=== PATIENT | male | born 1945 | race Caucasian/White ===

== ENCOUNTER 2016-05-31 18:32 | Emergency (ER) | payer OTHER ==
[~2016-05-31] VITALS: Ht 177.8 cm; Wt 126.0 kg
[~2016-05-31 18:32] MED LIST: CORE25TA PO; HYDR-2768 PO; LISI-366 PO; LOVA40TA PO; NORV10TA PO; ST JTAB PO; TAB-TAB PO
[2016-05-31 18:35] VITALS: BP 184/92; PULSE 84; RESP 18; TEMP 97.9; O2SAT 93
[2016-05-31] MEDS ORDERED: AMLO10TA2 PO (18:50)
[2016-05-31] MEDS ORDERED: MOME17I EACH NARE (18:50)
[2016-05-31] MEDS ORDERED: DICL1CAP4 PO (18:50)
[2016-05-31] MEDS ORDERED: DICL25 PO (18:50)
[2016-05-31] MEDS ORDERED: SIMV40TA PO (18:50)
[2016-05-31] MEDS ORDERED: CARV25TA PO (18:50)
[2016-05-31] MEDS ORDERED: OMEP20TA PO (18:50)
[2016-05-31] MEDS ORDERED: HYDR25TA5 PO (18:50)
[2016-05-31] MEDS ORDERED: LISI40TA PO (18:50)
--- NOTE | 2016-05-31 19:23 | PD ---
HPI Chief Complaint: Neuro Symptoms/ Deficits Time Seen by Provider: 19:05 Travel History International Travel<30 days: No Contact w/Intl Traveler<30days: No Traveled to known affect area: No History of Present Illness HPI The patient is a 71-year-old female that at approximately 6 PM tonight was riding in a car when he felt severe vertigo and nausea without vomiting. The patient has just been getting over a "cold". Also, both ear canals are stopped up and, despite using softening medicine for a week he has been referred to ENT on 14 June to clean out his ears. He denies any ear pain or fever. He denies any focal weakness. He denies any headache. The patient sees a group tester and has a history of renal insufficiency. He has had one kidney removed. He has a mass on the other kidney. The group tester recently stated that his levels were "stable". PFSH Past Medical History Cancer: Yes (SUSPECTED L RENAL CARCINOMA) Cardiovascular Problems: No Diabetes: No Endocrine: No Gastrointestinal Disorders: No Genitourinary: No Hepatitis: No Hiatal Hernia: No Hypertension: Yes Immune Disorder: No Medical other: No Musculoskeletal: Yes (ARTHRITIS IN KNEE--L KNEE REPLACEMENT) Neurologic: Yes (TIA 2009) Psychiatric: No Reproductive: No Respiratory: Yes (SLEEP APNEA, 2 LITERS OXYGEN AT NIGHT) Thyroid Disease: No Influenza Vaccination: Yes Past Surgical History Abdominal Surgery: No AICD: No Cardiac Surgery: No Ear Surgery: No Eye Surgery: No Genitourinary Surgery: Yes (LEFT KIDNEY REMOVED) Gynecologic Surgery: No Joint Replacement: Yes (L KNEE) Oral Surgery: No Pacemaker: No Thoracic Surgery: No Other Surgery: Yes Social History Alcohol Use: No Tobacco Use: No Substance Use: No Allergies-Medications (Allergen,Severity, Reaction): Coded Allergies: No Known Allergies (Unverified , 05/31/16) Reported Meds & Prescriptions Reported Meds & Active Scripts Active Reported Nasonex Nasal [place] (Mometasone Furoate) 50 Mcg/Act Naspr 2 [place] EACH NARE DAILY Diclofenac Sodium DR (Diclofenac Sodium) 25 Mg Tabdr 25 Mg PO BID Zorvolex (Diclofenac) 35 Mg Cap 25 Mg PO TID Omeprazole 20 Mg Tab 20 Mg PO DAILY Simvastatin 40 Mg Tab 40 Mg PO HS Amlodipine (Amlodipine Besylate) 10 Mg Tab 10 Mg PO DAILY Hydrochlorothiazide 25 Mg Tab 25 Mg PO DAILY Lisinopril 40 Mg Tab 80 Mg PO DAILY Carvedilol 25 Mg Tab 50 Mg PO BID Review of Systems Except as stated in HPI: all other systems reviewed are Neg Physical Exam Narrative GENERAL: The patient is alert, oriented 3 in moderate apparent distress with his vertigo. He holds his head completely still. His vital signs show blood pressure 184/92 and otherwise normal. SKIN: Warm and dry. HEAD: Atraumatic. Normocephalic. EYES: Pupils equal and round. No scleral icterus. No injection or drainage. ENT: No nasal bleeding or discharge. Mucous membranes pink and moist. There is horizontal nystagmus when the patient looks to one side or the other. Neither tympanic membrane can be seen due to hard, inspissated wax in the canals. This is unlikely to respond to irrigation. NECK: Trachea midline. No JVD. No carotid bruits are heard. CARDIOVASCULAR: Regular rate and rhythm. No murmur appreciated. RESPIRATORY: No accessory muscle use. Clear to auscultation. Breath sounds equal bilaterally. GASTROINTESTINAL: Abdomen soft, non-tender, nondistended. Hepatic and splenic margins not palpable. MUSCULOSKELETAL: No obvious deformities. No clubbing. No cyanosis. No edema. NEUROLOGICAL: Awake and alert. No obvious cranial nerve deficits. Motor grossly within normal limits. Normal speech. PSYCHIATRIC: Appropriate mood and affect; insight and judgment normal. Data Data Last Documented VS Vital Signs Date Time Temp Pulse Resp B/P Pulse Ox O2 Delivery O2 Flow Rate FiO2 05/31/16 20:41 87 18 161/87 96 Room Air 05/31/16 18:35 97.9 Orders Electrocardiogram (05/31/16 19:15) Complete Blood Count With Diff (05/31/16 19:15) Comprehensive Metabolic Panel (05/31/16 19:15) Troponin I (05/31/16 19:15) Urinalysis - C+S If Indicated (05/31/16 19:15) Magnesium (Mg) (05/31/16 19:15) Ct Brain W/O Iv Contrast(Rout) (05/31/16 19:15) Ondansetron Inj (Zofran Inj) (05/31/16 19:30) Sodium Chlor 0.9% 1000 Ml Inj (Ns 1000 M (05/31/16 19:30) Meclizine (Antivert) (05/31/16 19:45) Labs Laboratory Tests Test 05/31/16 05/31/16 19:20 20:50 White Blood Count 9.0 TH/MM3 Red Blood Count 4.89 MIL/MM3 Hemoglobin 14.0 GM/DL Hematocrit 42.4 % Mean Corpuscular Volume 86.8 FL Mean Corpuscular Hemoglobin 28.6 PG Mean Corpuscular Hemoglobin 32.9 % Concent Red Cell Distribution Width 12.9 % Platelet Count 254 TH/MM3 Mean Platelet Volume 8.2 FL Neutrophils (%) (Auto) 61.9 % Lymphocytes (%) (Auto) 21.4 % Monocytes (%) (Auto) 6.2 % Eosinophils (%) (Auto) 8.4 % Basophils (%) (Auto) 2.1 % Neutrophils # (Auto) 5.5 TH/MM3 Lymphocytes # (Auto) 1.9 TH/MM3 Monocytes # (Auto) 0.6 TH/MM3 Eosinophils # (Auto) 0.8 TH/MM3 Basophils # (Auto) 0.2 TH/MM3 CBC Comment DIFF FINAL Differential Comment Sodium Level 139 MEQ/L Potassium Level 4.2 MEQ/L Chloride Level 105 MEQ/L Carbon Dioxide Level 24.5 MEQ/L Anion Gap 10 MEQ/L Blood Urea Nitrogen 41 MG/DL Creatinine 2.30 MG/DL Estimat Glomerular Filtration 28 ML/MIN Rate Random Glucose 135 MG/DL Calcium Level 8.6 MG/DL Magnesium Level 2.4 MG/DL Total Bilirubin 0.3 MG/DL Aspartate Amino Transf 17 U/L (AST/SGOT) Alanine Aminotransferase 28 U/L (ALT/SGPT) Alkaline Phosphatase 85 U/L Troponin I LESS THAN 0.02 NG/ML Total Protein 7.9 GM/DL Albumin 3.8 GM/DL Urine Color YELLOW Urine Turbidity CLEAR Urine pH 5.5 Urine Specific [place] 1.016 Urine Protein TRACE mg/dL Urine Glucose (UA) NEG mg/dL Urine Ketones NEG mg/dL Urine Occult Blood TRACE Urine Nitrite NEG Urine Bilirubin NEG Urine Leukocyte Esterase NEG Urine RBC 0-3 /hpf Urine WBC 0-2 /hpf Urine Squamous Epithelial 0-5 /hpf Cells Urine Bacteria NONE /hpf Microscopic Urinalysis Comment CULT NOT INDICATED MDM Medical Decision Making Medical Screen Exam Complete: Yes Emergency Medical Condition: Yes Medical Record Reviewed: Yes Interpretation(s) The CT brain shows extensive vascular calcifications, microvascular ischemic demyelinization in deep white matter which is chronic but no acute abnormality. The urine shows trace blood but is otherwise normal and culture is not indicated. The CBC is normal. The complete metabolic profile shows a BUN of 41 , creatinine of 2.3, GFR of 28, glucose 135 but is otherwise unremarkable. The troponin I is normal. The magnesium is normal. Differential Diagnosis Viral labyrinthitis, benign positional vertigo, ischemic CVAunlikely, electrolyte disorder, renal insufficiency, acute coronary syndromeunlikely Narrative Course The patient likely has labyrinthitis. This may be related to the recent virus that he had. It is difficult to tell whether his bilateral cerumen impaction has anything to do with this. It is now 927 p.m. and the patient's vertigo has subsided and his nausea has resolved. He can now open his eyes and moving his head without a problem. Diagnosis Primary Impression: Viral labyrinthitis Additional Impressions: Chronic renal insufficiency Bilateral impacted cerumen Additional Instructions: Put Debrox in both ears as instructed by the label. Do not miss your ENT appointment. Med/Other Pt SpecificInfo: Prescription(s) given Scripts Promethazine (Phenergan)25 Mg Tab25 Mg PO Q6H PRN (Nausea/Vomiting) #40 TAB Ref 0 Prov:Shakir De La Vega MD 05/31/16 Meclizine 25 Mg Tab25 Mg PO TID PRN (VERTIGO) #45 TAB Ref 0 Prov:Shakir De La Vega MD 05/31/16 Disposition: 01 DISCHARGE HOME Condition: Stable Shakir De La Vega MD May 31, 2016 19:23
[2016-05-31 19:26] LABS: AUTOMATED NEUTROPHIL # 5.5 TH/MM3 (1.8-7.7); BASOPHIL # 0.2 TH/MM3 (0-0.2); BASOPHIL % 2.1 % (0.0-2.0); EOSINOPHIL # 0.8 TH/MM3 (0-0.4); EOSINOPHIL % 8.4 % (0.0-4.0); HEMATOCRIT 42.4 % (39.0-51.0); HEMO FLAGS DIFF FINAL; LYMPH % 21.4 % (9.0-44.0); LYMPHOCYTE # 1.9 TH/MM3 (1.0-4.8); MEAN CELL VOLUME 86.8 FL (80.0-100.0); MEAN CORPUSCULAR HEMOGLOBIN 28.6 PG (27.0-34.0); MEAN CORPUSCULAR HGB CONC 32.9 % (32.0-36.0); MONO % 6.2 % (0.0-8.0); NEUT % 61.9 % (16.0-70.0); PLATELET COUNT 254 TH/MM3 (150-450); RED BLOOD COUNT 4.89 MIL/MM3 (4.50-5.90); RED CELL DISTRIBUTION WIDTH 12.9 % (11.6-17.2)
[2016-05-31] MEDS ORDERED: SODIUM CHLOR 0.9% 1000 ML INJ 1,000 ML IV SCH (19:30)
[2016-05-31] MEDS ORDERED: ONDANSETRON HCL 4 MG/2 ML VIAL IV ONE (19:30)
[2016-05-31 19:36] VITALS: BP 169/94; PULSE 81; RESP 18; O2SAT 96
[2016-05-31 19:37] LABS: CHLORIDE 105 MEQ/L (98-107); POTASSIUM 4.2 MEQ/L (3.5-5.1); SODIUM (NA) 139 MEQ/L (136-145)
[2016-05-31 19:41] LABS: ANION GAP 10 MEQ/L (5-15); BICARBONATE 24.5 MEQ/L (21.0-32.0); BLOOD UREA NITROGEN 41 MG/DL (7-18); MAGNESIUM 2.4 MG/DL (1.5-2.5)
[2016-05-31 19:44] LABS: ALT (GPT) 28 U/L (12-78); AST (GOT) 17 U/L (15-37); GLOMERULAR FILTRATION RATE 28 ML/MIN (>89)
[2016-05-31 19:45] LABS: TOTAL BILIRUBIN ADULT 0.3 MG/DL (0.2-1.0)
[2016-05-31] MEDS ORDERED: MECLIZINE HCL 25 MG TAB PO ONE ×2 (19:45→21:45)
[2016-05-31 19:47] LABS: ALKALINE PHOSPHATASE 85 U/L (45-117)
[2016-05-31 20:41] VITALS: BP 161/87; PULSE 87; RESP 18; O2SAT 96
[2016-05-31 20:56] LABS: BLOOD, URINE TRACE (NEG); GLUCOSE,URINE NEG (NEG); KETONE, URINE NEG (NEG); NITRITE,URINE NEG (NEG); PH, URINE 5.5 (5.0-8.5)
[2016-05-31 20:57] LABS: URINE COLOR YELLOW (YELLW/STRAW)
[2016-05-31 21:00] LABS: RBC, URINE 0-3 /hpf (0-3); SQUAMOUS EPITHELIAL CELL URINE 0-5 /hpf (0-5); WBC, URINE 0-2 /hpf (0-5)
[2016-05-31 21:01] LABS: COMMENT (UR) CULT NOT INDICATED; CULTURE IF INDICATED CULT NOT INDICATED
--- NOTE | 2016-05-31 21:03 | RADHPO ---
EXAM DATE/TIME: 05/31/2016 20:43 [facility] COMPARISON: No previous studies available for comparison. INDICATIONS : Dizziness. RADIATION DOSE: 62.07 CTDIvol (mGy) MEDICAL HISTORY : Carcinoma, not otherwise specified. Hypertension. Cerebrovascular disease. SURGICAL HISTORY : Nephrectomy, left. ENCOUNTER: Initial ACUITY: 1 day PAIN SCALE: 0/10 LOCATION: cranial TECHNIQUE: Multiple contiguous axial images were obtained of the head. Using automated exposure control and adj ustment of the mA and/or kV according to patient size, radiation dose was kept as low as reasonably a chievable to obtain optimal diagnostic quality images. FINDINGS: CEREBRUM: The ventricles are normal for age. No evidence of midline shift, mass lesion, hemorrhage or acute in farction. No extra-axial fluid collections are seen. Moderate microvascular ischemic demyelinization of the deep white matter POSTERIOR FOSSA: The cerebellum and brainstem are intact. The 4th ventricle is midline. The cerebellopontine angle i s unremarkable. EXTRACRANIAL: The visualized portion of the orbits is intact. Vascular calcifications in the internal carotid arter ies in the siphon and vertebral arteries at the foramen SKULL: The calvaria is intact. No evidence of skull fracture. CONCLUSION: Extensive vascular calcifications. Microvascular ischemic demyelinization in deep white matter chroni c. No acute abnormality. Rashard Donohue MD on May 31, 2016 at 21:00 Board Certified Radiologist. This report was verified electronically.
[2016-05-31] MEDS ORDERED: MECL-62 PO (21:29)
[2016-05-31] MEDS ORDERED: PROM25TA5 PO (21:29)
[2016-05-31] MEDS ORDERED: PROMETHAZINE HCL 25 MG TAB PO ONE (21:45)
[2016-05-31 21:51] VITALS: BP 162/88; PULSE 84; RESP 18; O2SAT 96
--- NOTE | 2016-06-01 16:33 | EKG ---
Date Performed: 05/31/2016 Time Performed: 18:39:34 PTAGE: 71 years EKG: Normal Sinus rhythm Inferior infarct - age undetermined Abnormal R-wave progression, concerning for a lateral myocardial infarct Baseline artifact Abnormal ECG PREVIOUS TRACING : 06/16/2013 10.23 Compared to previous tracing, there has been a change in th e lateral R-wave progression, potentially consistent with the lateral myocardial infarction-age indet erminant. DOCTOR: Mary Lou Quiroz Interpretating Date/Time 06/01/2016 16:31:44
== END 2016-05-31 21:54 | disposition home or self-care (01) ==
LOC: PHED 18:32
DX: H83.09 Labyrinthitis, unspecified ear (principal); B34.9 Viral infection, unspecified; H61.23 Impacted cerumen, bilateral; N18.9 Chronic kidney disease, unspecified; R94.31 Abnormal electrocardiogram [ECG] [EKG]
CPT/HCPCS: 70450; 80053; 81001; 83735; 84484; 85025; 93005; 96361; 96374; 99284; J2405; J7030; Q0169

== ENCOUNTER 2016-12-18 08:30 | Inpatient (IN) | payer OTHER, MEDICARE ==
[~2016-12-18] VITALS: Ht 182.9 cm; Wt 136.5 kg
[~2016-12-18 08:30] MED LIST changes: +AMLO10TA2 PO; +CARV25TA PO; -CORE25TA PO; +DICL1CAP4 PO; +DICL25 PO; -HYDR-2768 PO; +HYDR25TA5 PO; -LISI-366 PO; +LISI40TA PO; -LOVA40TA PO; +MECL-62 PO; +MOME17I EACH NARE; -NORV10TA PO; +OMEP20TA PO; +PROM25TA5 PO; +SIMV40TA PO; -ST JTAB PO; -TAB-TAB PO
[2016-12-24] VITALS (9 sets, daily range): BP systolic 124–151; BP diastolic 70–75; PULSE 71–100; RESP 16–20; TEMP 97.5–99.4; O2SAT 92–97
[2016-12-24] MEDS ORDERED: INSULIN HUMAN REGULAR 1,000 UNITS/10 ML VIAL SQ PRN (06:15)
[2016-12-24] MEDS ORDERED: CHLORHEXIDINE GLUCONATE 2 % 1 PACK (2 CLOTHS) TOPICAL PRN (06:15)
[2016-12-24] MEDS ORDERED: LACTATED RINGER'S 1000 ML IV PRN (06:15)
[2016-12-24] MEDS ORDERED: POVIDONE IODINE 5% (ANTISEPSIS KIT) 4 APPLICATIONS EACH NARE PRN (06:15)
[2016-12-24] MEDS ORDERED: SODIUM CHLORID 0.9% 500 ML IV PRN (06:15)
[2016-12-24] MEDS ORDERED: METOPROLOL TARTRATE 25 MG TAB PO PRN (06:15)
[2016-12-24] MEDS ORDERED: ASPI-110 PO (06:17)
[2016-12-24] MEDS ORDERED: ceFAZolin 2 GM PREMIX 50 ML ONE (07:04)
[2016-12-24] MEDS ORDERED: FAMOTIDINE 20 MG/2 ML VIAL ONE (07:21)
[2016-12-24] MEDS ORDERED: MIDAZOLAM HCL 2 MG/2 ML VIAL ONE (07:21)
[2016-12-24] MEDS ORDERED: BUPIVACAINE LIPOSO PF 1.3% INJ 20 ML, DEXAMETHASONE INJ 4 MG, MORPHINE INJ 8 MG in SODI... IRRIGATION ONE (07:30)
[2016-12-24] MEDS ORDERED: ACETAMINOPHEN 325 MG TAB PO PRN (10:15)
[2016-12-24] MEDS ORDERED: RESP: ALBUTEROL 2.5 MG/3 ML NEB (PRN) NEB (10:15)
[2016-12-24] MEDS ORDERED: SODIUM CHLORIDE 0.9% FLUSH 5 ML FLUSH IV FLUSH PRN (10:15)
[2016-12-24] MEDS ORDERED: MAGNESIUM HYDROXIDE SUSP 30 ML CUP PO PRN (10:15)
[2016-12-24] MEDS ORDERED: Post-op Orders (for Pharmacy) MISC OTHER ONE (10:15)
[2016-12-24] MEDS ORDERED: ONDANSETRON HCL 4 MG/2 ML VIAL IV PUSH PRN (10:15)
[2016-12-24] MEDS ORDERED: DO NOT ADM ANY ANTICOAGULANT DRUGS PRN (10:31)
[2016-12-24] MEDS ORDERED: SUGAMMADEX SODIUM 200 MG/2 ML VIAL IV PUSH ONE ×2 (10:50)
--- NOTE | 2016-12-24 11:28 | RADRPT ---
EXAM DATE/TIME: 12/24/2016 10:46 [facility] COMPARISON: CHEST SINGLE AP, July 14, 2013, 15:36. INDICATIONS : Post op thoracotomy. MEDICAL HISTORY : left lower lung nodule SURGICAL HISTORY : Needle Biopsy ENCOUNTER: Initial ACUITY: 1 day PAIN SCORE: 0/10 LOCATION: Bilateral chest FINDINGS: Portable AP views of the chest demonstrate a normal-sized cardiac silhouette. A large bore left chest tube is present in the left hemithorax. No pneumothorax is visualized. Lungs are mildly underinflate d. There is no effusion or airspace consolidation. Bones and soft tissues demonstrate no acute findin g. CONCLUSION: Left chest tube is present and no pneumothorax is visualized. Ariel Dowling MD on December 24, 2016 at 11:25 Board Certified Radiologist. This report was verified electronically.
[2016-12-24] MEDS ORDERED: LACTATED RINGER'S 1000 ML INJ 2,000 ML IV ONE (12:00)
[2016-12-24] MEDS ORDERED: ONDANSETRON HCL 4 MG/2 ML VIAL IV PUSH ONE (12:00)
[2016-12-24] MEDS ORDERED: ROCURONIUM INJ 50 MG/5 ML SYRINGE IV PUSH ONE (12:00)
[2016-12-24] MEDS ORDERED: MORPHINE SULFATE 4 MG/ML INJ IV ONE (12:00)
[2016-12-24] MEDS ORDERED: PROPOFOL 200 MG/20 ML AMP IV ONE (12:00)
--- NOTE | 2016-12-24 14:24 | PD.OP ---
cc: Alber Serrano MD; Shaheen Monahan MD; Jp Parks MD Operative Report Date of Surgery: Dec 24, 2016 Preoperative Diagnosis: Postoperative Diagnosis: Procedure: 1. Robotic Left Lower Lobe Mass Resection 2. Intercostal Nerve Block Surgeon: Alber Serrano Sports Marketer(s): Prasad Randall Operation and Findings: PREOPERATIVE DIAGNOSIS 1. Left Lower Lobe Lung Nodule 2. Renal Cell Carcinoma - s/p nephrectomy 3. Right Lung Nodules 4. Renal Insufficiency POSTOPERATIVE DIAGNOSIS same PROCEDURES 1. Robotic Left Lower Lobe Mass Resection 2. Intercostal Nerve Block SURGEON Alber Serrano MD RUG SIZER FLASH Hull RNFA ANESTHESIA General endotracheal. CLICKER OPERATOR MARCO A Jacinto MD OPERATIVE TIME Please see record. COMPLICATIONS None. INDICATION FOR PROCEDURE The patient is a 71 yo gentleman with h/o RC, now presenting with a slowly enlarging left lower lobe lung mass. DESCRIPTION OF PROCEDURE The patient was brought to the operating suite and placed in supine position. Following satisfactory induction of general endotracheal anesthesia, the patient was placed in the right lateral decubitus position. The left chest was then prepped and draped in the usual sterile fashion. Under direct vision, camera was introduced in the 9th ICS and insufflation was begun into the chest . Instrument arm 1 and 2 were placed. Lesion was identified in the basilar segment of the lower lobe adjacent to the underlying diaphragm. The lesion was resected en bloc with a lung stapler. Specimen was bagged and removed from the chest. Frozen section was consistent with a metastatic renal cell carcinoma. A 28-Hungarian chest tube was placed. Intercostal nerve block was performed at the level of the incision and 3 rib spaces above and below using Exparel with Decadron solution. Hemostasis was assured and no air-leaks were identified. Wounds were closed with 2-0, 3-0, and 4-0 Monocryl. The patient tolerated the procedure well and postoperatively went to recovery in stable condition. Alber Serrano MD Dec 24, 2016 14:24
[2016-12-24] MEDS: RESP: ALBUTEROL 2.5 MG/3 ML NEB (SCH) NEB ×2 (16:01→21:04)
[2016-12-24] MEDS ORDERED: CARV12.52 PO (17:04)
[2016-12-24] MEDS: ACETAMINOPHEN 1000 MG/100 ML 100 ML IV SCH ×2 (17:14→23:00)
[2016-12-24] MEDS: oxyCODONE/ACETAMINOPHEN 5 MG/325 MG TAB PO PRN ×2 (20:10→23:41)
[2016-12-24] MEDS: PANTOPRAZOLE SOD 40 MG DELAYED RELEASE TAB PO SCH (20:10)
[2016-12-24] MEDS ORDERED: DOCUSATE CALCIUM 240 MG CAP PO SCH (21:00)
[2016-12-24] MEDS: SODIUM CHLORIDE 0.9% FLUSH 5 ML FLUSH IV FLUSH SCH (21:00)
[2016-12-24] MEDS ORDERED: CARVEDILOL 12.5 MG TAB PO SCH ×2 (21:00)
[2016-12-25] VITALS (29 sets, daily range): BP systolic 117–161; BP diastolic 64–82; PULSE 74–96; RESP 16–20; TEMP 98.1–98.6; O2SAT 90–94
[2016-12-25] MEDS: oxyCODONE/ACETAMINOPHEN 5 MG/325 MG TAB PO PRN (03:47)
[2016-12-25] MEDS: ACETAMINOPHEN 1000 MG/100 ML 100 ML IV SCH ×2 (05:00→11:56)
[2016-12-25] MEDS: RESP: ALBUTEROL 2.5 MG/3 ML NEB (SCH) NEB ×4 (05:07→21:18)
--- NOTE | 2016-12-25 05:18 | RADRPT ---
EXAM DATE/TIME: 12/25/2016 04:49 [facility] COMPARISON: CHEST SINGLE AP, December 24, 2016, 10:46. INDICATIONS : Short of breath. MEDICAL HISTORY : left lower lung nodule. SURGICAL HISTORY : Needle Biopsy. ENCOUNTER: Subsequent ACUITY: 4 - 6 days PAIN SCORE: 0/10 LOCATION: Bilateral chest FINDINGS: 2 portable frontal views of the chest show a single left-sided thoracostomy tube without pneumothorax or effusion. Low lung volumes bilaterally. No discrete infiltrate. Heart is normal in size. CONCLUSION: Left thoracostomy tube without pneumothorax or effusion. Hernán Contreras Jr., MD on December 25, 2016 at 5:16 Board Certified Radiologist. This report was verified electronically.
[2016-12-25 06:47] LABS: AUTOMATED NEUTROPHIL # 12.7 TH/MM3 (1.8-7.7); BASOPHIL % 0.1 % (0.0-2.0); HEMATOCRIT 40.8 % (39.0-51.0); HEMO FLAGS DIFF FINAL; LYMPH % 6.8 % (9.0-44.0); MEAN CELL VOLUME 89.5 FL (80.0-100.0); MEAN CORPUSCULAR HEMOGLOBIN 28.9 PG (27.0-34.0); MEAN CORPUSCULAR HGB CONC 32.3 % (32.0-36.0); MONO % 7.4 % (0.0-8.0); NEUT % 85.7 % (16.0-70.0); PLATELET COUNT 236 TH/MM3 (150-450); RED BLOOD COUNT 4.56 MIL/MM3 (4.50-5.90); RED CELL DISTRIBUTION WIDTH 13.6 % (11.6-17.2); WHITE BLOOD COUNT 14.9 TH/MM3 (4.0-11.0)
[2016-12-25 07:02] LABS: BICARBONATE 24.5 MEQ/L (21.0-32.0); POTASSIUM 4.5 MEQ/L (3.5-5.1)
[2016-12-25] MEDS ORDERED: LISI40TA PO (07:11)
[2016-12-25] MEDS ORDERED: CORE25TA PO (07:35)
[2016-12-25] MEDS: CARVEDILOL 12.5 MG TAB PO SCH ×2 (09:00→20:47)
[2016-12-25] MEDS ORDERED: HYDROCHLOROTHIAZIDE 25 MG TAB PO SCH (09:00)
[2016-12-25] MEDS ORDERED: LISINOPRIL 80 MG PO SCH (09:00)
[2016-12-25] MEDS: LISINOPRIL 20 MG TAB PO SCH (09:00)
[2016-12-25] MEDS: ASPIRIN EC 81 MG TABEC PO SCH (09:00)
[2016-12-25] MEDS: HYDROCHLOROTHIAZIDE 25 MG TAB PO SCH (09:00)
[2016-12-25] MEDS ORDERED: ASPIRIN 81 MG CHEW TAB PO SCH (09:00)
[2016-12-25] MEDS: SODIUM CHLORIDE 0.9% FLUSH 5 ML FLUSH IV FLUSH SCH ×2 (09:01→20:48)
[2016-12-25] MEDS: FLUTICASONE PROPIONATE 50 MCG/ACT 16 GM NASAL SPRAY EACH NARE SCH (09:01)
--- NOTE | 2016-12-25 09:08 | MB ---
cc: ARACELIS WHATLEY MD, RIZALINA M.D. WHITE, R. STEVEN M.D. KHANNA, SOHIT K. MD DATE OF CONSULTATION 12/25/2016 DATE OF 1945 [address] Kathryn Breaux REASON FOR CONSULTATION Renal cell carcinoma with metastatic disease to the lungs. Oncology has been asked to see this patient to discuss additional systemic therapeutic options. CHIEF COMPLAINT Mr. Alvares denies acute complaints. He tells me he does have some discomfort along the left chest wall, but this is minimal. He is looking forward to going home soon. HISTORY OF PRESENT ILLNESS Mr. Alvares is a very pleasant 71-year-old male who is originally from [facility]. 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 Mr. Alvares was diagnosed in July of 2013 with a renal cell carcinoma involving the left kidney. The tumor measured 4 x 3.5 x 3 cm and was unifocal and clear cell histology. Final pathologic stage was T1a, NX. Following resection, the patient underwent periodic restaging imaging scans and was found to have a slowly enlarging left lower lobe pulmonary nodule. This could not be biopsied percutaneously therefore open biopsy was recommended. He underwent surgical resection of this lesion on 12/24/2016. The surgery performed was a robot assisted left lower lobe mass resection. Preliminary pathologic findings indicated metastatic renal cell carcinoma. He is recovering well post op. PAST MEDICAL HISTORY 1. Renal cell carcinoma 2. Hypertension 3. Obesity 4. TIA PAST SURGICAL HISTORY 1. Left total knee replacement 2. Left nephrectomy 3. Robot assisted left lower lobe lung mass resection. FAMILY HISTORY Father had prostate carcinoma in his 80s. Mother of coronary artery disease and strokes. Maternal grandfather had cancer of unknown primary. Nephew was diagnosed with renal cell carcinoma in his 50s. SOCIAL HISTORY The patient is originally from [place], he worked in [employer], he now lives at home with his . He has four children of his own. He has 19 grandchildren and two great-grandchildren. He reports hardly ever having smoked in the past and denies alcohol can abuse and tells me he drinks only socially. ALLERGIES NO KNOWN DRUG ALLERGIES. CURRENT INPATIENT MEDICATIONS 1. Cefazolin 1 gram IV q.8 h 2. Ringer's lactate 30 mL per hour 3. Tylenol 650 mg p.o. q.4 h 4. Albuterol 2.5 mg nebulized q.6 h 5. Amlodipine 10 mg p.o. daily 6. Aspirin 81 mg once a day 7. Colace 250 mg p.o. q.h.s. 8. Flonase two sprays per nostril daily. 9. HCTZ 25 mg once a day 10. Insulin per sliding scale protocol. 11. Lisinopril 20 mg once a day 12. Pantoprazole 40 mcg p.o. daily 13. Pravastatin 80 mg p.o. q.h.s. REVIEW OF SYSTEMS A 13-point review of systems is obtained. The patient's major complaint is that of some pain at the site of surgical incisions, he otherwise denies fevers, chills, night sweats, chest pain ( angina-like), hemoptysis, abdominal pain, nausea, vomiting, diarrhea, hematochezia, melena, dysuria, hematuria, urinary incontinence. He denies any focal sensory motor deficits. PHYSICAL EXAMINATION Temperature 98.1 degrees Fahrenheit, heart rate 94-80 beats per minute, respiratory rate 16, blood pressure 143/78, O2 sats 92% on room air. GENERAL PHYSICAL APPEARANCE: Mr. Alvares is an elderly male, he is morbidly obese and sitting up in bed, he appears to be in no acute distress and has a pleasant disposition. HEENT: Head is atraumatic, normocephalic, conjunctive are not pale, sclerae are anicteric, EOMI, PERRLA, oral exam, no pharyngeal erythema. NECK: No palpable cervical or supraclavicular lymphadenopathy. RESPIRATORY: Good air movement bilaterally. Good inspiratory effort, no added breath sounds, specifically no rhonchi, rales or wheezes. CARDIOVASCULAR: Regular rate and rhythm, S1, S2. No obvious murmurs, rubs or gallops. ABDOMEN: Obese, soft, nontender, and nondistended. No palpable organ enlargement. No tenderness. CHEST: On the left chest wall, there is a chest tube in place. EXTREMITIES: Lower extremities have no pretibial edema or calf tenderness. He does have pneumatic compression devices. EQUIPMENT WORKER: No focal sensory or motor deficits. LABORATORY FINDINGS Dated 12/25/2016: WBC count 15, hemoglobin 13.2 gm/dl, hematocrit 40.8%, platelet count 236, absolute neutrophil count 12.7. Chemistries: Sodium 133, potassium 4.5, chloride 101, bicarb 24.5, BUN 36, creatinine 2.54, EGFR 25, random glucose 127, calcium 8.1. ASSESSMENT Mr. Alvares is a 71-year-old male with a history of renal cell carcinoma (clear cell type) involving the left kidney, this was resected in July of 2013. The patient was found to have enlarging left lower lobe pulmonary nodule in the costophrenic recess. Percutaneous biopsies were attempted however, were not possible given the location and size of the lesion. He therefore underwent open biopsy and resection. Preliminary pathology is consistent with metastatic renal cell carcinoma. In addition to the left lower lobe pulmonary nodule, the patient also had right-sided pulmonary nodules which have had a more indolent course. In addition to the renal cell carcinoma, Mr. Alvares has significant other medical comorbid conditions including chronic renal insufficiency, hypertension, obesity, and hyperlipidemia. The oncology service has been asked to see him to coordinate outpatient care. RECOMMENDATIONS Renal cell carcinoma with biopsy-proven pulmonary metastasis: At this point, I would like to schedule followup with Mr. Alvares in my clinic in the upcoming weeks. I would like to restage him to assess for additional tumor burden. If he does have additional tumor burden which is measurable, it would be reasonable to either target the lesions with radiation to render him without evidence of disease versus initiating him on palliative systemic therapy. If he is completely without evidence of disease, it may be reasonable to keep him on observation alone as opposed to initiating a therapeutic intervention. It should be noted that the patient's primary tumor was resected over three years ago and that in the past 3-1/2 years or so he has developed just one area of metastasis (as far as we know thus far). This indicates his disease has a rather indolent biology. Future follow-up visits have been scheduled. MD HYACINTH Hutton/TRES /7:25 AM /8:50 AM JOHN
[2016-12-25] MEDS: POLYETHYLENE GLYCOL 17 GM PKG PO SCH (11:56)
[2016-12-25] MEDS: DOCUSATE SODIUM 100 MG CAP PO SCH ×2 (11:56→20:47)
--- NOTE | 2016-12-25 14:57 | PD.CAR.PN ---
CVT Progress Note CVT: POD #: 1 Subjective/Hospital Course: 71/m diagnosed with renal cell carcinoma involving left kidney 07/2013/ tumor was consistent with renal cell carcinoma ( clear cell type) final path T1a, NX pt underwent resection / per Oncology note, he had periodic restaging imaging scans and was found to have a slowly enlarging left lower lobe pulmonary nodule PMH: Renal cell carcinoma, HTN, TIA, obesity surgery : Robotic Left Lower Lobe Mass Resection 12/24 frozen path: clear cell type similar to pt previous renal cell carcinoma 12/25 chest tube with no air leak, minimal drainage by was seen by Oncologist Dr Lynda Monahan / outpt f/u pending pain controlled/ additional GI motility meds added OOB ambulate Objective: GENERAL: A&O x 3 SKIN: Warm and dry.incision x 3 intact and well approximated left lateral chest wall HEAD: Normocephalic. EYES: No scleral icterus. No injection or drainage. NECK: Supple, trachea midline. No JVD or lymphadenopathy. CARDIOVASCULAR: Regular rate and rhythm without murmurs, gallops, or rubs. RESPIRATORY: Breath sounds equal bilaterally. No accessory muscle use. chest in left chest in place, no air leak, to wall suction / minimal drainage 10cc/ 12 hrs GASTROINTESTINAL: Abdomen soft, non-tender, nondistended. MUSCULOSKELETAL: No cyanosis, or edema. BACK: Nontender without obvious deformity. No CVA tenderness. Vital Signs Date Time Temp Pulse Resp B/P (MAP) Pulse Ox O2 Delivery O2 Flow Rate FiO2 12/25/16 09:42 93 Nasal Cannula 2.00 12/25/16 06:00 84 12/25/16 05:00 80 12/25/16 04:00 84 12/25/16 03:00 94 12/25/16 03:00 98.1 93 16 143/78 (99) 92 12/25/16 02:00 84 12/25/16 01:00 90 12/25/16 00:00 94 12/24/16 23:00 99.4 99 16 151/75 (100) 92 12/24/16 23:00 100 12/24/16 22:00 94 12/24/16 21:05 92 Nasal Cannula 2.00 12/24/16 21:00 94 12/24/16 20:00 92 12/24/16 19:00 99.3 96 18 136/70 (92) 97 12/24/16 19:00 91 12/24/16 17:38 97 Nasal Cannula 2.00 12/24/16 15:00 82 12/24/16 15:00 98.5 80 17 136/75 (95) 93 Labs: Laboratory Tests Test 12/25/16 05:10 White Blood Count 14.9 TH/MM3 (4.0-11.0) Red Blood Count 4.56 MIL/MM3 (4.50-5.90) Hemoglobin 13.2 GM/DL (13.0-17.0) Hematocrit 40.8 % (39.0-51.0) Mean Corpuscular Volume 89.5 FL (80.0-100.0) Mean Corpuscular Hemoglobin 28.9 PG (27.0-34.0) Mean Corpuscular Hemoglobin Concent 32.3 % (32.0-36.0) Red Cell Distribution Width 13.6 % (11.6-17.2) Platelet Count 236 TH/MM3 (150-450) Mean Platelet Volume 8.7 FL (7.0-11.0) Neutrophils (%) (Auto) 85.7 % (16.0-70.0) Lymphocytes (%) (Auto) 6.8 % (9.0-44.0) Monocytes (%) (Auto) 7.4 % (0.0-8.0) Eosinophils (%) (Auto) 0.0 % (0.0-4.0) Basophils (%) (Auto) 0.1 % (0.0-2.0) Neutrophils # (Auto) 12.7 TH/MM3 (1.8-7.7) Lymphocytes # (Auto) 1.0 TH/MM3 (1.0-4.8) Monocytes # (Auto) 1.1 TH/MM3 (0-0.9) Eosinophils # (Auto) 0.0 TH/MM3 (0-0.4) Basophils # (Auto) 0.0 TH/MM3 (0-0.2) CBC Comment DIFF FINAL Differential Comment Blood Urea Nitrogen 36 MG/DL (7-18) Creatinine 2.53 MG/DL (0.60-1.30) Random Glucose 127 MG/DL (74-106) Calcium Level 8.1 MG/DL (8.5-10.1) Sodium Level 133 MEQ/L (136-145) Potassium Level 4.5 MEQ/L (3.5-5.1) Chloride Level 101 MEQ/L (98-107) Carbon Dioxide Level 24.5 MEQ/L (21.0-32.0) Anion Gap 8 MEQ/L (5-15) Estimat Glomerular Filtration Rate 25 ML/MIN (>89) Result Diagram: 12/25/16 0510 12/25/16 0510 Telemetry: NSR (1) Robotic Left Lower Lobe Mass Resection Plan: frozen path similar to pt prior renal carcinoma outp f/u with Oncology continue nebs, pulm toileting , wean off 02 remove chest tube in am (2) Renal cell carcinoma of left kidney (3) Malignant neoplasm of kidney Elvia Joy Dec 25, 2016 14:57
[2016-12-25] MEDS: ACETAMINOPHEN/HYDROcodone 325 MG/5 MG TAB PO PRN ×2 (17:46→22:00)
[2016-12-25] MEDS: PANTOPRAZOLE SOD 40 MG DELAYED RELEASE TAB PO SCH (20:47)
[2016-12-25] MEDS ORDERED: PRAVASTATIN SOD 80 MG TAB PO SCH ×2 (21:00)
[2016-12-26] VITALS (12 sets, daily range): BP systolic 123–148; BP diastolic 69–77; PULSE 68–87; RESP 12–20; TEMP 97.8–98.2; O2SAT 90–93
[2016-12-26] MEDS: ACETAMINOPHEN/HYDROcodone 325 MG/5 MG TAB PO PRN ×2 (05:00→08:02)
[2016-12-26] MEDS: RESP: ALBUTEROL 2.5 MG/3 ML NEB (SCH) NEB ×2 (05:14→09:46)
[2016-12-26] MEDS: HYDROCHLOROTHIAZIDE 25 MG TAB PO SCH (08:01)
[2016-12-26] MEDS: LISINOPRIL 20 MG TAB PO SCH (08:01)
[2016-12-26] MEDS: ASPIRIN EC 81 MG TABEC PO SCH (08:01)
[2016-12-26] MEDS: CARVEDILOL 12.5 MG TAB PO SCH (08:01)
[2016-12-26] MEDS: POLYETHYLENE GLYCOL 17 GM PKG PO SCH (08:01)
[2016-12-26] MEDS: SODIUM CHLORIDE 0.9% FLUSH 5 ML FLUSH IV FLUSH SCH (08:02)
[2016-12-26] MEDS: DOCUSATE SODIUM 100 MG CAP PO SCH (08:02)
[2016-12-26] MEDS: FLUTICASONE PROPIONATE 50 MCG/ACT 16 GM NASAL SPRAY EACH NARE SCH (08:02)
[2016-12-26] MEDS ORDERED: POTASSIUM CHLORIDE 8 MEQ CONTROLLED RELEASE TAB PO ONE (10:45)
[2016-12-26] MEDS ORDERED: FUROSEMIDE 40 MG/4 ML VIAL IV PUSH ONE (10:45)
--- NOTE | 2016-12-26 10:58 | PD.CAR.PN ---
CVT Progress Note Subjective/Hospital Course: 71/m diagnosed with renal cell carcinoma involving left kidney 07/2013/ tumor was consistent with renal cell carcinoma ( clear cell type) final path T1a, NX pt underwent resection / per Oncology note, he had periodic restaging imaging scans and was found to have a slowly enlarging left lower lobe pulmonary nodule PMH: Renal cell carcinoma, HTN, TIA, obesity surgery : Robotic Left Lower Lobe Mass Resection 12/24 frozen path: clear cell type similar to pt previous renal cell carcinoma 12/25 chest tube with no air leak, minimal drainage by was seen by Oncologist Dr Lynda Monahan / outpt f/u pending pain controlled/ additional GI motility meds added OOB ambulate 12/26 chest tube dc without difficulty 02 sat 88 -90 desats when sleeping, has CPAP machine at home, but doesn't use it will give dose of lasix, then check home 02 walk test eval for dc home today Objective: GENERAL: SKIN: Warm and dry. incision x 3 intact left chest area / dressing over chest tube onsite health coach: Normocephalic. EYES: No scleral icterus. No injection or drainage. NECK: Supple, trachea midline. No JVD or lymphadenopathy. CARDIOVASCULAR: Regular rate and rhythm without murmurs, gallops, or rubs. RESPIRATORY: Breath sounds equal bilaterally. No accessory muscle use. GASTROINTESTINAL: Abdomen soft, non-tender, nondistended. MUSCULOSKELETAL: No cyanosis, or edema. BACK: Nontender without obvious deformity. No CVA tenderness. Vital Signs Date Time Temp Pulse Resp B/P (MAP) Pulse Ox O2 Delivery O2 Flow Rate FiO2 12/26/16 10:38 76 12/26/16 09:31 18 12/26/16 08:45 98.0 77 20 148/77 (100) 93 12/26/16 08:45 79 12/26/16 06:00 68 12/26/16 05:21 92 Nasal Cannula 3.00 12/26/16 05:00 78 12/26/16 04:00 70 12/26/16 03:00 78 12/26/16 03:00 97.8 78 12 123/69 (87) 90 12/26/16 02:00 70 12/26/16 01:00 70 12/26/16 00:00 74 12/25/16 23:16 98.6 80 16 138/74 (95) 90 12/25/16 23:00 76 12/25/16 22:00 88 12/25/16 21:18 92 21 12/25/16 21:00 84 12/25/16 20:00 86 12/25/16 19:25 98.6 84 16 146/76 (99) 91 12/25/16 19:00 75 12/25/16 18:00 78 12/25/16 17:00 80 12/25/16 16:03 93 21 12/25/16 16:00 86 12/25/16 15:00 75 12/25/16 15:00 98.5 85 20 128/69 (88) 91 12/25/16 14:00 76 12/25/16 13:00 74 12/25/16 12:00 80 12/25/16 11:00 98.3 88 20 117/64 (81) 92 12/25/16 11:00 74 Result Diagram: 12/25/16 0510 12/25/16 0510 (1) Robotic Left Lower Lobe Mass Resection Plan: frozen path similar to pt prior renal carcinoma outp f/u with Oncology continue nebs, pulm toileting , wean off 02 remove chest tube in am (2) Renal cell carcinoma of left kidney (3) Malignant neoplasm of kidney (4) Sleep apnea Plan: will need to use home CPAP eval for need for home 02 Elvia Joy Dec 26, 2016 10:58
--- NOTE | 2016-12-26 11:39 | RADRPT ---
EXAM DATE/TIME: 12/26/2016 11:03 [facility] COMPARISON: CHEST SINGLE AP, December 25, 2016, 4:49. INDICATIONS : Post chest tube removal. MEDICAL HISTORY : left lower lung nodule. SURGICAL HISTORY : Needle Biopsy. ENCOUNTER: Subsequent ACUITY: 1 day PAIN SCORE: 0/10 LOCATION: Bilateral chest FINDINGS: The heart is mildly enlarged. There are consolidative changes at the left lung base. There is minimal left basilar effusion. These changes are similar compared to previous exam. The osseous structures a re grossly intact. CONCLUSION: 1. No pneumothorax post chest tube removal. There is some mild consolidative change at the left lung base. Dragan Estrada MD on December 26, 2016 at 11:37 Board Certified Radiologist. This report was verified electronically.
--- NOTE | 2016-12-26 12:46 | HHI.FF ---
Face to Face Verification Diagnosis: (1) Sleep apnea (2) Robotic Left Lower Lobe Mass Resection (3) Renal cell carcinoma of left kidney Home Health Nursing Order: Signs/symptoms of disease process Medication education-adverse effect Wound care and dressing changes Nursing assessment with vital signs Instructions: Thoracic Surgery patients Mandatory frequency Assess and evaluation, 2-3 x a week for one week Initial visit 1. Review post chest surgery instructions chest precautions, Activity, Elastic hose, Incision care, Driving, Incentive spirometry, Smoking, [place] , Work and other) 2. Need Betadine to paint incision 3. Medication reconciliation 4. Importance of follow up care/ check on appointments 5. Make calendar record temperature daily 6. When to call Home nurse, review instructions, phone list 7. Incentive Spirometry, demonstration Visit 1- Begin discharge instruction for patient family and/ or caregiver using teach back method- 1. Signs and symptoms of infection 2. Disease characteristics 3. Medicines and side effects 4. Foods and nutrition/ appetite 5. Infection control/ hand washing/ hygiene Visit 2- Continue teaching 1. Discharge instructions- include additional information on smoking cessation , Visit 3- Continue teaching- 1. Cough and deep breathing, incision monitoring. Incentive spirometry Q1 hr x 10, while awake, also use acapella device hourly whole awake chest wall Precautions: NO pushing or pulling, ( pt must use chest pillow to support chest with all activities and with coughing Daily incision care: ok to shower daily ( starting thursday 12/28) no tub bath. Wash all incisions with liquid dial soap, clean wash cloth to each site, rinse and pat dry. Observe for any signs of infection, such as drainage which is dark yellow, marshall, green or foul smelling. Immediately report to the surgeon any drainage from the chest incision, or legs, and for any abnormal drainage from the chest tube sites. Notify surgeon if any temp >101.5 degrees F. When specialty dressing removed/ or if you do not have one, continue to shower daily as above, then rinse and pat incision dry and paint with betadine daily x 5 days. Allow steri strips to fall off if you have any. Avoid lotions, creams, salves, oils, etc. for the first month_ F/U appointment: as per [place] instructions: PCP in 2 weeks, CV surgeon 2 weeks, Data Management Manager 4 weeks, Oncologist 2 weeks For any questions regarding incisions/ dressing / meds / post op care or above Symptoms, Saturday 8am-5pm Heart & Vascular Surgery Office ( Dr. Serrano & Dr. Rosas), After Hours / Nights (5pm -8am) Weekends and Holidays Please call [facility] Card[facility] ([facility]) Charge Nurse I have seen patient Gage Alvares on 12/26/16. My clinical findings support the need for the requested home health care services because: Deconditioned w/ increased weakness I certify that my clinical findings support that this patient is homebound because: Post-op weakness cancel above order Elvia Joy Dec 26, 2016 12:46
[2016-12-26] MEDS ORDERED: DOCU1CAP39 PO (13:13)
[2016-12-26] MEDS ORDERED: HYDR-3516 PO (13:13)
--- NOTE | 2016-12-26 13:28 | HHI.DS ---
Discharge Summary Admission Date Dec 24, 2016 at 05:30 Discharge Date: Dec 26, 2016 Admitting Diagnosis left lung mass (1) Robotic Left Lower Lobe Mass Resection Diagnosis: Secondary (2) Sleep apnea Diagnosis: Principal ICD Codes: G47.30 - Sleep apnea Status: Chronic (3) Personal history of renal cancer Diagnosis: Principal ICD Codes: Z85.528 - Personal history of renal cancer Status: Chronic Procedures 1. Robotic Left Lower Lobe Mass Resection 12/24 Brief History 71/m diagnosed with renal cell carcinoma involving left kidney 07/2013/ tumor was consistent with renal cell carcinoma ( clear cell type) final path T1a, NX pt underwent resection / per Oncology note, he had periodic restaging imaging scans and was found to have a slowly enlarging left lower lobe pulmonary nodule PMH: Renal cell carcinoma, HTN, TIA, obesity surgery : Robotic Left Lower Lobe Mass Resection 12/24 frozen path: clear cell type similar to pt previous renal cell carcinoma CBC/BMP: 12/25/16 0510 12/25/16 0510 Significant Findings Laboratory Tests Test 12/25/16 05:10 White Blood Count 14.9 TH/MM3 (4.0-11.0) Neutrophils (%) (Auto) 85.7 % (16.0-70.0) Lymphocytes (%) (Auto) 6.8 % (9.0-44.0) Neutrophils # (Auto) 12.7 TH/MM3 (1.8-7.7) Monocytes # (Auto) 1.1 TH/MM3 (0-0.9) Blood Urea Nitrogen 36 MG/DL (7-18) Creatinine 2.53 MG/DL (0.60-1.30) Random Glucose 127 MG/DL (74-106) Calcium Level 8.1 MG/DL (8.5-10.1) Sodium Level 133 MEQ/L (136-145) Estimat Glomerular Filtration Rate 25 ML/MIN (>89) Imaging Last Impressions Chest X-Ray 12/26/16 1100 Signed Impressions: Service Date/Time: Monday, December 26, 2016 11:03 - CONCLUSION: 1. No pneumothorax post chest tube removal. There is some mild consolidative change at the left lung base. Dragan Estrada MD PE at Discharge GENERAL: SKIN: Warm and dry. incisions x 3 intact left lateral chest wall / dressing in place over chest tube database development project manager: Normocephalic. EYES: No scleral icterus. No injection or drainage. NECK: Supple, trachea midline. No JVD or lymphadenopathy. CARDIOVASCULAR: Regular rate and rhythm without murmurs, gallops, or rubs. RESPIRATORY: Breath sounds equal bilaterally. No accessory muscle use. GASTROINTESTINAL: Abdomen soft, non-tender, nondistended. MUSCULOSKELETAL: No cyanosis, or edema. BACK: Nontender without obvious deformity. No CVA tenderness. Hospital Course 12/25 chest tube with no air leak, minimal drainage by was seen by Oncologist Dr Lynda Monahan / outpt f/u pending pain controlled/ additional GI motility meds added OOB ambulate 12/26 chest tube dc without difficulty 02 sat 88 -90 desats when sleeping, has CPAP machine at home, but doesn't use it will give dose of lasix, then check home 02 walk test eval for dc home today home walk test 90% Room air will dc home Pt Condition on Discharge: Good Discharge Disposition: Discharge Home Discharge Instructions DIET: Follow Instructions for: As Tolerated, No Restrictions, Heart Healthy Diet Activities you can perform: Shower Only-No Bath Activities to avoid: Strenuous Activity, Driving Additional Activity Instructio: no lifting > 8 lbs or gallon of milk no driving x 2 weeks New Medications: Docusate Sodium (Dok) 100 Mg Cap 100 MG PO DAILY for Constipation, #30 CAP 0 Refills Hydrocodone-Acetaminophen (Hydrocodone-Acetaminophen) 5-325 mg Tab 1 TAB PO Q6H PRN for PAIN SCALE 3 TO 5, #40 TAB 0 Refills Continued Medications: Amlodipine (Amlodipine) 10 Mg Tab 10 MG PO DAILY for Blood Pressure Management, #30 TAB [address] (Aspirin 81) 81 Mg Tabdr 81 MG PO DAILY, TAB 0 Refills Carvedilol (Coreg) 25 Mg Tab 25 MG PO BID, #60 TAB 0 Refills Hydrochlorothiazide (Hydrochlorothiazide) 25 Mg Tab 25 MG PO DAILY, #30 TAB 0 Refills Lisinopril (Lisinopril) 40 Mg Tab 40 MG PO DAILY for Blood Pressure Management, #30 TAB 0 Refills Mometasone Nasal [place] (Nasonex Nasal [place]) 50 Mcg/Act Naspr 2 SPRAY EACH NARE DAILY for Allergy Management, #1 BOTTLE 0 Refills Simvastatin (Simvastatin) 40 Mg Tab 40 MG PO HS for Cholesterol Management, #30 TAB 0 Refills Rufino,Elvia R. SUBSTANCE ABUSE PREVENTION COORDINATOR Dec 26, 2016 13:28
== END 2016-12-26 13:37 | disposition home or self-care (01) | DRG 167 ==
LOC: HSDI 12-24 05:30 → HCIN 12-24 11:45
PROVIDERS: ADMIT Thoracic Surgery (Cardiothoracic Vascular Surgery); ATTEND Thoracic Surgery (Cardiothoracic Vascular Surgery)
PROC: 8E0W4CZ Robotic Assisted Procedure of Trunk Region, Percutaneous Endoscopic Approach (ICD-10-PCS; 2016-12-24)
PROC: 3E0T3CZ (ICD-10-PCS; 2016-12-24)
PROC: 0BBJ4ZX Excision of Left Lower Lung Lobe, Percutaneous Endoscopic Approach, Diagnostic (ICD-10-PCS; principal; 2016-12-24 07:26)
DX: C78.02 Secondary malignant neoplasm of left lung (principal); Z68.41 Body mass index [BMI] 40.0-44.9, adult; I10 Essential (primary) hypertension; E66.9 Obesity, unspecified; Z96.652 Presence of left artificial knee joint; G47.30 Sleep apnea, unspecified; R91.8 Other nonspecific abnormal finding of lung field; N28.9 Disorder of kidney and ureter, unspecified; Z90.5 Acquired absence of kidney; Z80.42 Family history of malignant neoplasm of prostate; Z85.528 Personal history of other malignant neoplasm of kidney; Z86.73 Personal history of transient ischemic attack (TIA), and cerebral infarction without residual deficits
CPT/HCPCS: 71010; 80048; 85025; 86850; 86900; 86901; 86920; 88307; 88331; 94150; 94620; 94640; 94664; C9290; J0131; J0690; J1100; J1940; J2250; J2270; J2405; J3010; J7120; J7613

== ENCOUNTER 2017-09-09 06:40 | Day surgery (SDC) | payer OTHER ==
[~2017-09-09] VITALS: Ht 182.9 cm; Wt 131.6 kg
[~2017-09-09 06:40] MED LIST changes: +ASPI1TAB57 PO; -CARV25TA PO; +CORE25TA PO; -DICL1CAP4 PO; -DICL25 PO; +DOCU1CAP39 PO; +HYDR-3516 PO; -MECL-62 PO; -OMEP20TA PO; -PROM25TA5 PO
[2017-09-09 07:10] VITALS: BP 150/91; PULSE 80; RESP 20; TEMP 98.2; O2SAT 96
[2017-09-09] MEDS ORDERED: CHLORHEXIDINE GLUCONATE 2 % 1 PACK (2 CLOTHS) TOPICAL SCH (07:30)
[2017-09-09] MEDS ORDERED: ceFAZolin 2 GM PREMIX 50 ML - implanted port/tunneled catheter insertion IV SCH (07:30)
[2017-09-09] MEDS ORDERED: SODIUM CHLORIDE 0.9% 1000 ML IV SCH (07:30)
[2017-09-09] MEDS ORDERED: VANCOMYCIN 1000 MG/NS 250 ML - implanted port/tunneled catheter IV SCH ×2 (07:30)
[2017-09-09] MEDS ORDERED: POVIDONE IODINE 5% (ANTISEPSIS KIT) 4 APPLICATIONS EACH NARE SCH (07:30)
[2017-09-09] MEDS ORDERED: MIDAZOLAM HCL 2 MG/2 ML VIAL ONE (08:33)
[2017-09-09] MEDS ORDERED: diphenhydrAMINE HCL 50 MG/ML VIAL ONE (08:34)
[2017-09-09] MEDS ORDERED: EPINEPHrine HCL (1:1000) 1 MG/ML VIAL ONE (08:34)
[2017-09-09] MEDS ORDERED: methylPREDNISolone SOD SUCC 125 MG/2 ML VIAL ONE (08:35)
[2017-09-09] MEDS ORDERED: ALBUTEROL SULFATE 90 MCG/ACT HFA 8 GM INHALER INH ONE (08:35)
[2017-09-09] MEDS ORDERED: ATROPINE SULFATE 1 MG/10 ML SYRINGE ONE (08:35)
[2017-09-09] MEDS ORDERED: LIDOCAINE 1%/EPINEPHrine 1:100,000 SOLN 20 ML VIAL ONE (09:07)
[2017-09-09 09:55] VITALS: BP 133/64; PULSE 71; RESP 18; TEMP 97.9; O2SAT 94
--- NOTE | 2017-09-09 09:55 | PD.RAD ---
Post Procedure Progress Note Pre Procedure Diagnosis: (1) Malignant neoplasm of kidney Post Procedure Diagnosis: (1) Malignant neoplasm of kidney Procedure Date: Sep 09, 2017 Supervising Radiologist: Hernán Contreras JR Proceduralist/Assist: RT Amy(R)(CV), Other Anesthesia: Conscious Sedation Plan of Activity Patient to Unit: ROPU Patient Condition: Good See PACS Report for procedural detail/treatment Central Venous Access Device Procedure 1 Left Infusaport Placement single lumen Pashto: 8 Findings: Port in good position and functions well. OK to use. Plan F/U with IR or a physician in 10-14 days for a site check. Jr. Ben,Hernán Gale MD Sep 09, 2017 09:55
[2017-09-09] MEDS ORDERED: SODIUM CHLORIDE 0.9% FLUSH 10 ML FLUSH IVF PRN (10:00)
[2017-09-09 10:10] VITALS: BP 123/56; PULSE 69; RESP 18; O2SAT 92
[2017-09-09 10:40] VITALS: BP 145/77; PULSE 78; RESP 16; O2SAT 92
[2017-09-09 11:10] VITALS: BP 135/78; PULSE 79; RESP 18; O2SAT 92
--- NOTE | 2017-09-09 13:07 | RADRPT ---
EXAM DATE: 09/09/2017 10:07 AM EDT AGE/SEX: 72 years / Male INDICATIONS: Patient with metastatic renal cell carcinoma. He will be receiving chemotherapy. CLINICAL DATA: This is the patient's initial encounter. Patient reports that signs and symptoms have been present for 2 weeks and indicates a pain score of 0/10. MEDICAL/SURGICAL HISTORY: Carcinoma, lung. HTN TIA Mass rt adrenal gland sleep apnea obesity pi tuitary adenoma Nephrectomy, left. Lt knee TKA lower lobe lung mass resection COMPARISON: No prior [facility] exams available for comparison. FLUORO TIME (min): 3.4 IMAGE SERIES: 3 SEDATION TIME (min): 35 MEDICATION(S): 2 mg midazolam (Versed) IV 100 mcg fentanyl (Sublimaze) IV Prophylactic antibiotics were administered with appropriate pre-procedure timing. DEVICE(S): Left 8 fr xcela plus port . . PROCEDURE : 1. Continuous pulse oximetry and EKG monitoring. 2. Intravenous conscious sedation. 3. Ultrasound guidance for venous access. 4. Fluoroscopic guided implantable central venous port placement. The patient was placed supine. The neck was prepped in sterile fashion. Full sterile technique was u sed, including cap, mask, sterile gloves and gown, and a large sterile sheet. Hand hygiene and 2% ch lorhexidine Betadine was utilized per protocol for cutaneous antisepsis with appropriate dry time for site. Sterile gel and sterile probe cover were utilized for ultrasound guidance. The skin and sub cutaneous tissues were infiltrated with local anesthetic solution. Under direct ultrasound guidance, central venous access was accomplished in the targeted vessel. The ultrasound images depicting access guidance were stored and saved to PACS for permanent record. A s ubcutaneous pocket was created using blunt dissection. The port was introduced to the pocket. The c atheter tubing was fed through a subcutaneous tunnel to the venotomy site. The catheter tubing was c ut to a suitable length and then was introduced through a valved Peel-Away sheath. Although the tip o f the catheter was positioned at the cavoatrial junction as soon as the peel-away sheath was removed the catheter retracted a fair amount due to the tortuosity of the vessels. A longer catheter was ther efore utilized and the tip positioned low within the right atrium. No ectopy observed. The pocket inc ision was closed with subcuticular Vicryl suture. Steri-Strips were applied. The port was flushed a nd locked with heparin solution per protocol. Sterile dressing was applied to the site. The patient tolerated the procedure well. Conscious sedation was performed with the prescribed dosages and duration as above in the presence of an independent trained radiology nurse to assist in the monitoring of the patient. EKG and oximetry remained stable throughout the procedure. The patient tolerated the procedure well and there were no complications. The patient was sent to post anesthesia recovery in stable condition. CONCLUSION: 1. Uncomplicated ultrasound and fluoroscopic guided implanted central venous port catheter placement as described in detail above. An 8 [place] Power port was placed. The tip of the catheter was purpos efully placed fairly low within the right atrium. This was done to try to maintain appropriate positi on of the catheter as a shorter catheter was utilized and had a tendency to flipped up into the SVC. Electronically signed by: Hernán Contreras MD 09/09/2017 1:06 PM EDT
== END 2017-09-09 11:45 | disposition home or self-care (01) ==
LOC: HROP 06:40 → HRIP 06:45 → HROP 11:45
PROVIDERS: ATTEND Internal Medicine Hematology & Oncology
DX: C64.2 Malignant neoplasm of left kidney, except renal pelvis (principal); C78.02 Secondary malignant neoplasm of left lung; E66.9 Obesity, unspecified; G47.30 Sleep apnea, unspecified; I10 Essential (primary) hypertension; Z86.73 Personal history of transient ischemic attack (TIA), and cerebral infarction without residual deficits; Z90.5 Acquired absence of kidney
CPT/HCPCS: 36561; 76937; 77001; 99152; 99153; C1769; C1788; J0690; J1642; J2250; J3010; J3370; J7030; J7050; 99211; G0463; J0171; J0461; J1200; J2930